=== PATIENT | male | born 1955 | race Caucasian/White ===

== ENCOUNTER → 2017-06-23 | Outpatient (CLI) | payer OTHER ==
--- NOTE | 2017-06-23 12:27 | RAD ---
Left upper extremity arterial ultrasound, 06/23/2017: History: Weakness and poor pulses Duplex evaluation of the major arteries in the left upper extremity was performed including grayscale, color-flow and spectral Doppler analysis. Color imaging show no evidence of high-grade stenosis. No significant focal velocity acceleration was seen in the major arteries to suggest high-grade stenosis. There are triphasic Doppler waveforms throughout much of the arterial system. Both radial and ulnar Doppler waveforms are triphasic. IMPRESSION: No duplex evidence of high-grade arterial stenosis in the left upper extremity.
== END | disposition home or self-care (01) ==
LOC: US 11:30
PROVIDERS: ATTEND Family Medicine
DX: I73.9 Peripheral vascular disease, unspecified (principal); R09.89 Other specified symptoms and signs involving the circulatory and respiratory systems
CPT/HCPCS: 93931

== ENCOUNTER → 2021-01-15 | Outpatient (CLI) | payer OTHER ==
--- NOTE | 2021-01-15 10:52 | RAD ---
Exam: US BILATERAL LOWEREXTREMITY VENOUS DOPPLER Indication: Reason: EDEMA / Spl. Instructions: / History: Technique: Color-flow and pulsed wave duplex ultrasound with compression of venous structures of th e bilateral lower extremities. Comparison: None Available. Findings: Duplex ultrasound with compression of the deep venous structures of the bilateral lower ext remities from the common femoral vein through the popliteal vein is negative for DVT. The posterior t ibial and peroneal veins are segmentally visualized and patent where seen. Normal venous waveforms an d augmentation are noted throughout. Impression: No evidence for DVT in the bilateral lower extremities. Electronically signed by: Akira Bee MD (01/15/2021 10:49 AM) [id number]
== END ==
LOC: US 09:55
PROVIDERS: ATTEND Family Medicine
DX: R60.0 Localized edema (principal)
CPT/HCPCS: 93970